=== PATIENT | female | born 1980 | race African-American/Black ===

== ENCOUNTER 2021-03-05 19:39 | Emergency (ER) | payer OTHER ==
[~2021-03-05] VITALS: Ht 170.2 cm; Wt 68.0 kg
[2021-03-05] MEDS ORDERED: PROAIR HFA8.5 GM INH (21:05)
[2021-03-05] MEDS ORDERED: ZITHROMAX250 MG PO (21:05)
[2021-03-05] MEDS ORDERED: PREDNISONE 20 M20 MG PO (21:05)
[2021-03-05 21:44] VITALS: BP 121/72
== END 2021-03-05 21:44 | disposition home or self-care (01) ==
LOC: ER 19:39
DX: J20.9 Acute bronchitis, unspecified (principal); Z20.822 Contact with and (suspected) exposure to COVID-19; I10 Essential (primary) hypertension; Z98.51 Tubal ligation status